=== PATIENT | female | born 2000 | race Caucasian/White ===

== ENCOUNTER → 2024-02-20 | Emergency (ER) | payer BC, OTHER ==
[~2024-02-20] MED LIST: DERMABOND SKIN ADHESIVE TOP ONE; TDAP (DIPHTH,PERTUSS(ACELL),TET VAC) 0.5 ML VIAL IMVAC ONE
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
[2024-02-20 15:45] VITALS: BP 112/56; TEMP 98.3; O2SAT 99
== END ==
LOC: ER 13:56
PROC: 0HQ1XZZ Repair Face Skin, External Approach (ICD-10-PCS; principal; 2024-02-20)
DX: S01.81XA Laceration without foreign body of other part of head, initial encounter (principal); S50.812A Abrasion of left forearm, initial encounter; V47.5XXA Car driver injured in collision with fixed or stationary object in traffic accident, initial encounter; Z88.0 Allergy status to penicillin; Z88.2 Allergy status to sulfonamides
CPT/HCPCS: 70450; 72125